=== PATIENT | male | born 1980 | race Caucasian/White ===

== ENCOUNTER 2019-02-26 16:15 | Emergency (ER) | payer MEDICAID, OTHER ==
[~2019-02-26] VITALS: Ht 172.7 cm; Wt 81.6 kg
[2019-02-26 16:19] VITALS: BP 156/104
[2019-02-26] MEDS ORDERED: SODIUM CHLORIDE 0.9% 1,000 ML IV ONE (16:45)
== END 2019-02-26 18:33 | disposition left against medical advice (07) ==
LOC: ER 16:53
DX: F32.9 Major depressive disorder, single episode, unspecified (principal); F17.210 Nicotine dependence, cigarettes, uncomplicated; I10 Essential (primary) hypertension; F10.10 Alcohol abuse, uncomplicated
CPT/HCPCS: 93005; 94761